=== PATIENT | male | born 1955 | race Caucasian/White ===

== ENCOUNTER → 2021-03-18 08:56 | Outpatient (BNVA) | payer OTHER, SELFPAY | PROVIDERS: Visit Provider Urology ==

== ENCOUNTER → 2022-08-02 13:57 | Outpatient (BNVA) | payer MEDICARE, SELFPAY | PROVIDERS: PCP Family Medicine; Visit Provider Urology | DX: R31.29 Other microscopic hematuria (principal); N52.01 Erectile dysfunction due to arterial insufficiency; I10 Essential (primary) hypertension; E78.5 Hyperlipidemia, unspecified; Z79.01 Long term (current) use of anticoagulants; Z79.899 Other long term (current) drug therapy | CPT/HCPCS: 51798; 99212 ==

== ENCOUNTER 2023-08-03 11:32 | Outpatient (AMB) | payer MEDICARE, SELFPAY ==
--- NOTE | 2023-08-03 11:49 | A.OFFVIS_ITS ---
Intake Intake Visit Reasons: 1Y PVR Intake Note: Patient is Present for Follow Up PVR Urology Medication: Tadalafil Antibiotic Allergies: Penicillin Blood Thinners: Warfarin PVR: 0 Allergies penicillin V Allergy (Unknown, Verified 08/02/22 14:10) Unknown HPI HPI Comments History of Present Illness Details Mahamed RIVERS is a very pleasant male. He is a patient of Dr Silvestre. He is seen for the following urologic conditions. - microscopic hematuria - erectile dysfunction One year follow-up Continue good response to tadalafil 10 mg on demand Does not need all the time Microscopic Hematuria:? Effective bladder emptying Negative UA today ? Since the last visit the patient has?has not noticed gross hematuria, does not test positive for microscopic hematuria.? Relevant medical history for?anticoagulation therapy - Coumadin ?- ex-smoker stopped 20 years ago ?- no work place exposure.? Radiographic imaging:?05/04 , US renal NAD.? Other investigations?cytology, normal 05/04 ? Cystoscopy 05/04 findings?normal Erectile dysfunction:? He presents today for?for continued evaluation and management of erectile dysfunction.? Symptoms have been present for/since?Ongoing.? Current treatment includes?oral therapy - tadalafil 10 mg on demand.? At this time he experiences erections?are partial and adequate for vaginal penetration, that undergo rapid detumesence after penetration, GAMA 12- 16 Mild-Moderate ED.? Nocturnal erections?do occur.? Currently they are?in a stable relationship.? Associated problems? hypertension ?Yes ? diabetes ?No ? dyslipidemia ?Yes ? Overall he is ?is not satisfied with the current management.? Therapeutic plan includes?Continue oral therapy PFSH Medical History Benign essential hypertension Benign colonic polyp Hypertrophic cardiomyopathy Hx of Graves' disease Hypothyroidism Diverticulosis Unilateral recurrent inguinal hernia without obstruction or gangrene Urachal remnant Erectile dysfunction due to arterial insufficiency Microscopic hematuria Review of Systems Const Denies chills and Denies fever(s) Card Reports no additional complaints and Denies syncope Resp Denies cough GI Denies abdominal pain and Denies heartburn Reports as per HPI and Denies change in libido Neuro Denies syncope Psych Denies change in libido Endo Denies change in libido Physical Exam Const General: cooperative, healthy appearing, comfortable and no acute distress Orientation/consciousness: patient oriented x3 HEENT Face and sinus: Yes normal facial exam Mouth: moist mucous membranes Neck Neck: Yes normal visual inspection, Yes full ROM and Yes trachea midline Chest Chest palpation & inspection: normal inspection of the chest Resp Effort & Inspection: normal respiratory effort, able to speak in complete sentences and no respiratory distress GI Inspection: Yes normal to inspection Back/Spine/Pelvis Cervical Spine: normal cervical lordosis Thoracic/Lumbar Spine: thoracic and lumbar spine normal to inspection Skin General skin exam: no rashes or lesions noted Neuro General: patient oriented x3, gait normal, tone normal and moves all extremities Extrem General: Yes normal to inspection and Yes capillary refill normal Office Procedures Post Void Residual Post Residual Void Post Void Residual (PVR): 0 [id number] Void Residual by ultrasound Assessment & Plan Assessment & Plan (1) Erectile dysfunction due to arterial insufficiency: Code(s): N52.01 - Erectile dysfunction due to arterial insufficiency (2) Microscopic hematuria: Code(s): R31.29 - Other microscopic hematuria Plan Twelve month follow-up Orders: Orders AMB Post Void Residual by ultrasound Today Z13.9 - Encounter for screening, unspecified Patient Instructions: Imaging studies, laboratory and physical exam results were discussed and reviewed in detail. No major barriers to patient understanding were identified. An opportunity to ask questions regarding the treatment plan was provided. All questions were answered. The patient expressed understanding and agreement with the above treatment plan. The patient is aware they should contact our office by phone for worsening of their current condition or the appearance of new urologic symptoms. Compliance is encouraged with any medications and followup testing that is ordered. It is a privilege to participate in the urologic care of your patient. If you have any questions or concerns regarding treatment for the above conditions, or other urologic issues, please do not hesitate to contact me. The office telephone contact is [phone]. This note is constructed using voice recognition software. While every effort has been made to ensure accuracy bait tier errors may have been included. Yours sincerely, Dr Mckay Barrientos MD, [facility] - Urology Providers of Expert, Compassionate Care for the Genitourinary System Coding Level of Care Code Est Pt Level 4 (31951) Diagnoses Erectile dysfunction due to arterial insufficiency N52.01 Microscopic hematuria R31.29 CPT Codes Post Residual Void - PVR CPT Code: 18856-Dkws Void Residual by ultrasound ([id number])
== END 2023-08-03 12:10 | disposition home or self-care (01) ==
PROVIDERS: Visit Provider Urology
DX: N52.01 Erectile dysfunction due to arterial insufficiency (principal); R31.29 Other microscopic hematuria
CPT/HCPCS: 99213

== ENCOUNTER → 2023-08-03 11:32 | Outpatient (BNVA) | payer MEDICARE, SELFPAY | PROVIDERS: Visit Provider Urology | DX: N52.01 Erectile dysfunction due to arterial insufficiency (principal); R31.29 Other microscopic hematuria | CPT/HCPCS: 51798; 99212 ==

== ENCOUNTER 2024-08-01 10:34 | Outpatient (AMB) | payer MEDICARE, SELFPAY ==
--- NOTE | 2024-08-01 10:43 | MHC.OFFVIS ---
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 He is a patient of Dr Silvestre. He is seen for the following urologic conditions. - microscopic hematuria - erectile dysfunction One year follow-up Continue good response to tadalafil 10 mg on demand UA without blood today On Coumadin Refill provided Microscopic Hematuria:? Effective bladder emptying Negative UA today ? Since the last visit the patient has?has not noticed gross hematuria, does not test positive for microscopic hematuria.? Relevant medical history for?anticoagulation therapy - Coumadin ?- ex-smoker stopped 20 years ago ?- no work place exposure.? Radiographic imaging:?05/04 , US renal NAD.? Other investigations?cytology, normal 05/04 ? Cystoscopy 05/04 findings?normal Erectile dysfunction:? He presents today for?for continued evaluation and management of erectile dysfunction.? Symptoms have been present for/since?Ongoing.? Current treatment includes?oral therapy - tadalafil 10 mg on demand.? At this time he experiences erections?are partial and adequate for vaginal penetration, that undergo rapid detumesence after penetration, GAMA 12-16 Mild-Moderate ED.? Nocturnal erections?do occur.? Currently they are?in a stable relationship.? Associated problems? hypertension ?Yes ? diabetes ?No ? dyslipidemia ?Yes ? Overall he is ?is not satisfied with the current management.? Therapeutic plan includes?Continue oral therapy [facility] Medical History Benign essential hypertension Benign colonic polyp Hypertrophic cardiomyopathy Hx of Graves' disease Hypothyroidism Diverticulosis Unilateral recurrent inguinal hernia without obstruction or gangrene Urachal remnant Erectile dysfunction due to arterial insufficiency Microscopic hematuria Review of Systems Const Denies chills and Denies fever(s) Card Reports no additional complaints and Denies syncope Resp Denies cough GI Denies abdominal pain and Denies heartburn Reports as per HPI and Denies change in libido Neuro Denies syncope Psych Denies change in libido Endo Denies change in libido Physical Exam Const General: cooperative, healthy appearing, comfortable and no acute distress Orientation/consciousness: patient oriented x3 HEENT Face and sinus: Yes normal facial exam Mouth: moist mucous membranes Neck Neck: Yes normal visual inspection, Yes full ROM and Yes trachea midline Chest Chest palpation & inspection: normal inspection of the chest Resp Effort & Inspection: normal respiratory effort, able to speak in complete sentences and no respiratory distress GI Inspection: Yes normal to inspection Back/Spine/Pelvis Cervical Spine: normal cervical lordosis Thoracic/Lumbar Spine: thoracic and lumbar spine normal to inspection Skin General skin exam: no rashes or lesions noted Neuro General: patient oriented x3, gait normal, tone normal and moves all extremities Extrem General: Yes normal to inspection and Yes capillary refill normal Office Procedures Post Void Residual Post Residual Void Post Void Residual (PVR): 31 [id number] Void Residual by ultrasound Results AMB Urinalysis, Automated UA Leukoctes 0 Pedro/uL Last Edit by CATHERINE Ramos on 08/01/24 10:56 UA Nitrite Negative Last Edit by CATHERINE Ramos on 08/01/24 10:56 UA Urobilinogen 0.2 mg/dL Last Edit by CATHERINE Ramos on 08/01/24 10:56 UA Protein 6.0 mg/dL Last Edit by CATHERINE Ramos on 08/01/24 10:56 UA pH 0 Last Edit by CATHERINE Ramos on 08/01/24 10:56 UA Blood Manuelito/uL Last Edit by CATHERINE Ramos on 08/01/24 10:56 UA Specific Center 1.015 Last Edit by CATHERINE Ramos on 08/01/24 10:56 UA Ketone Negative Last Edit by CATHERINE Ramos on 08/01/24 10:56 UA Bilirubin 0 mg/dL Last Edit by CATHERINE Ramos on 08/01/24 10:56 UA Glucose 0 mg/dL Last Edit by CATHERINE Ramos on 08/01/24 10:56 Results Reviewed Results Reviewed: Laboratory Last Values Urine pH (Auto) 0 08/01/24 10:55 Specific Center (Auto) 1.015 08/01/24 10:55 Urine Protein (Auto) 6.0 mg/dL 08/01/24 10:55 Glucose (UA)(Auto) 0 mg/dL 08/01/24 10:55 Urine Ketones (Auto) Negative 08/01/24 10:55 Urine Nitrite (Auto) Negative 08/01/24 10:55 Urine Bilirubin (Auto) 0 mg/dL 08/01/24 10:55 Urine Urobilinogen (Auto) 0.2 mg/dL 08/01/24 10:55 Leukocyte Esterase (Auto) 0 Pedro/uL 08/01/24 10:55 Assessment & Plan Assessment & Plan (1) Microscopic hematuria: Code(s): R31.29 - Other microscopic hematuria Category: Medical (2) Erectile dysfunction due to arterial insufficiency: Code(s): N52.01 - Erectile dysfunction due to arterial insufficiency Category: Medical Plan 12 month follow-up Orders: Orders AMB Urinalysis Automated Today Z13.9 - Encounter for screening, unspecified Patient Instructions: Imaging studies, laboratory and physical exam results were discussed and reviewed in detail. No major barriers to patient understanding were identified. An opportunity to ask questions regarding the treatment plan was provided. All questions were answered. The patient expressed understanding and agreement with the above treatment plan. The patient is aware they should contact our office by phone for worsening of their current condition or the appearance of new urologic symptoms. Compliance is encouraged with any medications and followup testing that is ordered. It is a privilege to participate in the urologic care of your patient. If you have any questions or concerns regarding treatment for the above conditions, or other urologic issues, please do not hesitate to contact me. The office telephone contact is [phone]. This note is constructed using voice recognition software. While every effort has been made to ensure accuracy documentation nurse errors may have been included. Yours sincerely, Dr Mckay Barrientos MD, [facility] - Urology Providers of Expert, Compassionate Care for the Genitourinary System Coding Level of Care Code Est Pt Level 4 (69208) Diagnoses Microscopic hematuria R31.29 Erectile dysfunction due to arterial insufficiency N52.01 CPT Codes Post Residual Void - PVR CPT Code: 98995-Qsyb Void Residual by ultrasound ([id number])
== END 2024-08-01 11:19 | disposition home or self-care (01) ==
PROVIDERS: PCP Family Medicine; Visit Provider Urology
DX: R31.29 Other microscopic hematuria (principal); N52.01 Erectile dysfunction due to arterial insufficiency; Z13.9 Encounter for screening, unspecified
CPT/HCPCS: 99214

== ENCOUNTER → 2024-08-01 10:34 | Outpatient (BNVA) | payer MEDICARE, SELFPAY | PROVIDERS: PCP Family Medicine; Visit Provider Urology | DX: R31.29 Other microscopic hematuria (principal); N52.01 Erectile dysfunction due to arterial insufficiency | CPT/HCPCS: 51798; 81003; 99212 ==